=== PATIENT | female | born 1930 | race Caucasian/White ===

== ENCOUNTER 2020-09-26 19:26 | Inpatient (IN) | payer OTHER, MEDICARE ==
[2020-09-26 20:12] LABS: Bacteria/HPF None Seen HPF (None Seen); Bilirubin Negative (Negative); Blood, Urine Negative (Negative); Clarity Clear (Clear); Glucose, Urine (Dipstick) Normal (Negative); Ketone, Urine Negative (Negative); Leukocyte Negative Leu/uL (Negative); Nitrite Negative (Negative); Protein, Urine (Dipstick) 30 mg/dL (Neg-Trace); RBC/HPF 0-3 HPF (0-3); Squamous Epithelial 0-3 HPF (0-3); Urobilinogen Normal mg/dL (Less than 2); WBC/HPF 0-3 HPF (0-3)
[2020-09-26 20:19] LABS: Specific Gravity, Urine Greater than 1.060 (1.002-1.036)
[2020-09-26 20:21] LABS: #Eosinphils 0.2 thou/uL (0.0-0.7); #Lymphocytes 1.4 thou/uL (1.20-3.40); #Monocytes 1.6 thou/uL (0.11-0.59); #Neutrophils 16.3 thou/uL (1.40-6.50); %Basophils 0.1 % (0.0-1.0); %Eosinophils 1.1 % (0.0-10.0); %Lymphocytes 6.9 % (21.0-51.0); %Monocytes 8.4 % (0.0-10.0); %Neutrophils 83.5 % (42.0-75.0); Hemoglobin 11.9 g/dL (12.0-16.0); Mean Corpuscular HGB CONC 34.1 g/dL (32.0-36.0); Mean Corpuscular Hemoglobin 31.6 pg (27.0-31.0); Mean Corpuscular Volume 92.6 fL (78.0-98.0); Mean Platelet Volume 7.1 fL (7.4-10.4); Platelet Count 295 thou/uL (130-400); RBC Distribution Width 12.2 % (11.5-14.5); Red Blood Cell (RBC) Count 3.79 mill/uL (4.20-5.40); White Blood Cell (WBC) Count 19.5 thou/uL (4.8-10.8)
[2020-09-26] MEDS ORDERED: Ondansetron PF 4 MG/2 ML Vial IVP PRN (20:39)
[2020-09-26] MEDS ORDERED: Dextrose 50% Abboject 50 ML SYRINGE SLOW IVP PRN (20:39)
[2020-09-26] MEDS ORDERED: HumaLOG 300 UNITS/3 ML VIAL SC PRN (20:39)
[2020-09-26] MEDS ORDERED: Dextrose 5% in Water 1,000 ML IV PRN (20:39)
[2020-09-26 20:41] LABS: ALT (SGPT) 8 U/L (8-55); AST (SGOT) 10 U/L (5-34); Albumin 3.2 g/dL (3.4-4.8); Alkaline Phosphatase 61 U/L (40-110); Anion Gap 13 mmol/L (10-20); BUN (Urea Nitrogen) 23 mg/dL (9.8-20.1); Bilirubin, Total 0.4 mg/dL (0.2-1.2); Calc. Creatinine Clearance 0 mL/min (70-130); Calcium 8.3 mg/dL (7.8-10.44); Carbon Dioxide 23 mmol/L (23-31); Chloride 108 mmol/L (98-107); Globulin 2.1 g/dL (2.4-3.5); Glucose 169 mg/dL (83-110); Potassium 4.2 mmol/L (3.5-5.1); Protein, Total 5.3 g/dL (5.8-8.1); Sodium 140 mmol/L (136-145)
[2020-09-26] MEDS ORDERED: Gabapentin 100 MG CAP PO SCH (22:30)
[2020-09-26 23:06] LABS: #Basophils 0.1 thou/uL (0.0-0.2); #Eosinphils 0.1 thou/uL (0.0-0.7); #Monocytes 1.6 thou/uL (0.11-0.59); %Basophils 0.4 % (0.0-1.0); %Eosinophils 0.8 % (0.0-10.0); %Lymphocytes 12.8 % (21.0-51.0); %Monocytes 9.9 % (0.0-10.0); %Neutrophils 76.2 % (42.0-75.0); Mean Corpuscular HGB CONC 34.7 g/dL (32.0-36.0); Mean Corpuscular Hemoglobin 32.4 pg (27.0-31.0); Mean Corpuscular Volume 93.3 fL (78.0-98.0); Mean Platelet Volume 7.3 fL (7.4-10.4); Platelet Count 275 thou/uL (130-400); RBC Distribution Width 12.3 % (11.5-14.5); Red Blood Cell (RBC) Count 3.41 mill/uL (4.20-5.40); White Blood Cell (WBC) Count 15.8 thou/uL (4.8-10.8)
[2020-09-26] MEDS: traMADol HCl 50 MG TAB PO SCH (23:25)
[2020-09-26] MEDS: Acetaminophen 325 MG TAB PO SCH (23:26)
[2020-09-26] MEDS: Ibuprofen 200 MG TAB PO SCH (23:27)
[2020-09-26 23:30] LABS: Troponin I 0.032 ng/mL (< 0.028)
[2020-09-26 23:45] LABS: INR-International Normal Ratio 1.2; PTT 28.6 sec (22.9-36.1); Prothrombin Time 15.3 sec (12.0-14.7)
[2020-09-26] MEDS ORDERED: Hydrocortisone Sod Succ/PF 100 mg/2 ml Vial IVP SCH (23:45)
[2020-09-27 02:18] LABS: #Eosinphils 0.1 thou/uL (0.0-0.7); #Lymphocytes 1.3 thou/uL (1.20-3.40); #Monocytes 1.1 thou/uL (0.11-0.59); #Neutrophils 9.8 thou/uL (1.40-6.50); %Basophils 0.2 % (0.0-1.0); %Eosinophils 0.6 % (0.0-10.0); %Lymphocytes 10.2 % (21.0-51.0); %Monocytes 9.1 % (0.0-10.0); Hemoglobin 10.7 g/dL (12.0-16.0); Mean Corpuscular HGB CONC 34.6 g/dL (32.0-36.0); Mean Corpuscular Hemoglobin 32.4 pg (27.0-31.0); Mean Corpuscular Volume 93.6 fL (78.0-98.0); Mean Platelet Volume 7.1 fL (7.4-10.4); Platelet Count 262 thou/uL (130-400); RBC Distribution Width 12.4 % (11.5-14.5); Red Blood Cell (RBC) Count 3.31 mill/uL (4.20-5.40); White Blood Cell (WBC) Count 12.3 thou/uL (4.8-10.8)
[2020-09-27 02:31] LABS: INR-International Normal Ratio 1.2; PTT 28.9 sec (22.9-36.1); Prothrombin Time 15.1 sec (12.0-14.7)
[2020-09-27 02:32] VITALS: BMI 29.0
[2020-09-27 02:38] LABS: Troponin I 0.053 ng/mL (< 0.028)
[2020-09-27 02:58] LABS: BUN (Urea Nitrogen) 25 mg/dL (9.8-20.1); Calc. Creatinine Clearance 46 mL/min (70-130); Calcium 8.1 mg/dL (7.8-10.44); Carbon Dioxide 24 mmol/L (23-31); Glucose 156 mg/dL (83-110)
[2020-09-27] MEDS ORDERED: Lactated Ringer's 1,000 ML IV SCH ×2 (03:00)
[2020-09-27 03:32] LABS: Anion Gap 10 mmol/L (10-20); Chloride 108 mmol/L (98-107); Potassium 4.3 mmol/L (3.5-5.1); Sodium 139 mmol/L (136-145)
[2020-09-27] MEDS: Acetaminophen 325 MG TAB PO SCH ×2 (04:57→09:45)
[2020-09-27] MEDS: Ibuprofen 200 MG TAB PO SCH ×4 (04:58→23:07)
[2020-09-27] MEDS: traMADol HCl 50 MG TAB PO SCH ×4 (05:51→23:07)
[2020-09-27] MEDS ORDERED: Hydrocortisone Sod Succ/PF 100 mg/2 ml Vial IVP SCH (06:00)
[2020-09-27 09:02] LABS: Anion Gap 10 mmol/L (10-20); BUN (Urea Nitrogen) 24 mg/dL (9.8-20.1); Calc. Creatinine Clearance 50 mL/min (70-130); Calcium 7.8 mg/dL (7.8-10.44); Carbon Dioxide 24 mmol/L (23-31); Chloride 107 mmol/L (98-107); Glucose 136 mg/dL (83-110); Magnesium 1.7 mg/dL (1.6-2.6); Phosphorus 3.7 mg/dL (2.3-4.7); Potassium 4.2 mmol/L (3.5-5.1); Sodium 137 mmol/L (136-145)
[2020-09-27 09:24] LABS: CKMB 4.2 ng/mL (0-6.6)
[2020-09-27] MEDS: Pantoprazole 40 MG VIAL IVP SCH (09:37)
[2020-09-27] MEDS: Gabapentin 100 MG CAP PO SCH ×3 (09:37→20:01)
[2020-09-27] MEDS: Acetaminophen 500 MG TAB PO SCH ×3 (12:08→23:06)
[2020-09-28] MEDS: Acetaminophen 500 MG TAB PO SCH ×4 (05:04→23:23)
[2020-09-28] MEDS: Ibuprofen 200 MG TAB PO SCH ×4 (05:04→23:23)
[2020-09-28] MEDS: traMADol HCl 50 MG TAB PO SCH ×4 (05:04→23:23)
[2020-09-28] MEDS: Gabapentin 100 MG CAP PO SCH ×3 (09:07→20:07)
[2020-09-28] MEDS: Pantoprazole 40 MG VIAL IVP SCH (09:07)
[2020-09-29] MEDS: Ibuprofen 200 MG TAB PO SCH ×3 (05:11→17:46)
[2020-09-29] MEDS: traMADol HCl 50 MG TAB PO SCH ×3 (05:11→17:47)
[2020-09-29] MEDS: Acetaminophen 500 MG TAB PO SCH ×3 (05:11→17:45)
[2020-09-29] MEDS: Gabapentin 100 MG CAP PO SCH ×3 (08:20→20:33)
[2020-09-29] MEDS: Pantoprazole 40 MG VIAL IVP SCH (08:21)
[2020-09-29] MEDS: Sulfameth/Trimethoprim DS 800-160mg TAB PO SCH (20:34)
[2020-09-30] MEDS: Ibuprofen 200 MG TAB PO SCH ×5 (00:06→23:47)
[2020-09-30] MEDS: Acetaminophen 500 MG TAB PO SCH ×5 (00:07→23:47)
[2020-09-30] MEDS: traMADol HCl 50 MG TAB PO SCH ×5 (00:07→23:48)
[2020-09-30] MEDS: Levothyroxine Sodium 75 MCG TAB PO SCH (05:20)
[2020-09-30] MEDS: Saccharomyces boulardii 250 MG CAP PO SCH (09:51)
[2020-09-30] MEDS: Gabapentin 100 MG CAP PO SCH ×3 (09:51→20:28)
[2020-09-30] MEDS: Sulfameth/Trimethoprim DS 800-160mg TAB PO SCH ×2 (09:51→20:28)
[2020-09-30] MEDS: Enoxaparin Sodium 40 MG/0.4 ML SYRINGE SC SCH (09:53)
[2020-10-01] MEDS: Acetaminophen 500 MG TAB PO SCH ×3 (05:42→17:59)
[2020-10-01] MEDS: Ibuprofen 200 MG TAB PO SCH ×3 (05:43→17:57)
[2020-10-01] MEDS: traMADol HCl 50 MG TAB PO SCH ×3 (05:44→18:00)
[2020-10-01] MEDS: Levothyroxine Sodium 75 MCG TAB PO SCH (05:44)
[2020-10-01] MEDS: Enoxaparin Sodium 40 MG/0.4 ML SYRINGE SC SCH (08:35)
[2020-10-01] MEDS: Gabapentin 100 MG CAP PO SCH ×3 (08:36→20:33)
[2020-10-01] MEDS: Saccharomyces boulardii 250 MG CAP PO SCH (08:36)
[2020-10-01] MEDS: Sulfameth/Trimethoprim DS 800-160mg TAB PO SCH ×2 (08:36→20:28)
[2020-10-02] MEDS: traMADol HCl 50 MG TAB PO SCH ×4 (00:22→17:18)
[2020-10-02] MEDS: Acetaminophen 500 MG TAB PO SCH ×4 (00:22→17:18)
[2020-10-02] MEDS: Ibuprofen 200 MG TAB PO SCH ×4 (00:22→17:17)
[2020-10-02] MEDS: traMADol HCl 50 MG TAB PO PRN ×2 (02:47→17:19)
[2020-10-02] MEDS: Levothyroxine Sodium 75 MCG TAB PO SCH (05:26)
[2020-10-02] MEDS: Enoxaparin Sodium 40 MG/0.4 ML SYRINGE SC SCH (09:16)
[2020-10-02] MEDS: Gabapentin 100 MG CAP PO SCH ×2 (09:17→14:21)
[2020-10-02] MEDS: Saccharomyces boulardii 250 MG CAP PO SCH (09:17)
[2020-10-02] MEDS: Sulfameth/Trimethoprim DS 800-160mg TAB PO SCH (09:17)
[2020-10-02 16:23] VITALS: BP 143/76; TEMP 97.6
[2020-10-03] MEDS ORDERED: sulfaSALAzine 500 MG TAB PO SCH (09:00)
== END 2020-10-02 18:15 | disposition swing bed (61) | DRG 184 ==
LOC: ERS 19:26 → SURG A 20:39 → OBSVTOIN 20:39 → 2NO 09-27 05:13 → SURG A 09-28 17:34
PROVIDERS: ADMIT Surgery; ATTEND Surgery
DX: S22.43XA Multiple fractures of ribs, bilateral, initial encounter for closed fracture (principal); S22.20XA Unspecified fracture of sternum, initial encounter for closed fracture; K51.90 Ulcerative colitis, unspecified, without complications; S30.1XXA Contusion of abdominal wall, initial encounter; Z23 Encounter for immunization; I10 Essential (primary) hypertension; E11.9 Type 2 diabetes mellitus without complications; E03.9 Hypothyroidism, unspecified; E78.00 Pure hypercholesterolemia, unspecified; H35.30 Unspecified macular degeneration; E78.5 Hyperlipidemia, unspecified; S20.219A Contusion of unspecified front wall of thorax, initial encounter; J32.9 Chronic sinusitis, unspecified; I08.3 Combined rheumatic disorders of mitral, aortic and tricuspid valves; Z90.710 Acquired absence of both cervix and uterus; Z87.891 Personal history of nicotine dependence; V49.9XXA Car occupant (driver) (passenger) injured in unspecified traffic accident, initial encounter; Y92.410 Unspecified street and highway as the place of occurrence of the external cause; Z85.820 Personal history of malignant melanoma of skin; Z79.899 Other long term (current) drug therapy; Z79.82 Long term (current) use of aspirin; Z79.890 Hormone replacement therapy; Z79.84 Long term (current) use of oral hypoglycemic drugs; Z98.890 Other specified postprocedural states
CPT/HCPCS: 36415; 36416; 71045; 80048; 80053; 81003; 81015; 82533; 82553; 83735; 84100; 84146; 84484; 85025; 85610; 85730; 86850; 86900; 86901; 90471; 90732; 93005; 93010; 93306; 96374; 96375; 96376; C9113; G0009; G0378; G0390; J1650; J2405

== ENCOUNTER 2020-10-08 13:22 | Inpatient (IN) | payer OTHER, MEDICARE ==
[~2020-10-08 13:22] MED LIST: Iopamidol-370 76% 500 ML 1 ML ONE
[2020-10-08] MEDS ORDERED: Acetaminophen 325 MG TAB PO PRN (18:09)
[2020-10-08] MEDS ORDERED: Ondansetron PF 4 MG/2 ML Vial IVP PRN (18:09)
[2020-10-08] MEDS ORDERED: Dextrose 5% in Water 1,000 ML IV PRN (18:20)
[2020-10-08] MEDS ORDERED: Dextrose 50% Abboject 50 ML SYRINGE SLOW IVP PRN (18:20)
[2020-10-08] MEDS ORDERED: HumaLOG 300 UNITS/3 ML VIAL SC PRN ×2 (18:20)
[2020-10-08] MEDS ORDERED: Simethicone Chewable 80 MG TAB PO PRN (18:32)
[2020-10-08] MEDS ORDERED: Zolpidem Tartrate 5 MG TAB PO PRN (18:32)
[2020-10-08] MEDS: Sodium Chloride 0.9% 1,000 ML IV SCH (18:46)
[2020-10-08 19:56] LABS: Hemoglobin 6.9 g/dL (12.0-16.0)
[2020-10-08 20:06] LABS: INR-International Normal Ratio 1.3; Prothrombin Time 16.5 sec (12.0-14.7)
[2020-10-08] MEDS: Pantoprazole 40 MG VIAL IVP SCH (22:17)
[2020-10-08] MEDS: Cepastat Lozenges 1 LOZ PO PRN (22:17)
[2020-10-09 00:58] LABS: Hemoglobin 6.3 g/dL (12.0-16.0)
[2020-10-09] MEDS: Levothyroxine Sodium 75 MCG TAB PO SCH (05:13)
[2020-10-09] MEDS: Sodium Chloride 0.9% 1,000 ML IV SCH ×2 (07:18→21:14)
[2020-10-09] MEDS: Pantoprazole 40 MG VIAL IVP SCH ×2 (08:21→21:14)
[2020-10-09] MEDS: Losartan 25 MG TAB PO SCH (08:21)
[2020-10-09] MEDS: sulfaSALAzine 500 MG TAB PO SCH (08:21)
[2020-10-09] MEDS: Sucralfate 1 GM TAB PO SCH ×2 (08:21→16:40)
[2020-10-09] MEDS: Cepastat Lozenges 1 LOZ PO PRN (08:22)
[2020-10-09 10:46] LABS: Anion Gap 11 mmol/L (10-20); BUN (Urea Nitrogen) 38 mg/dL (9.8-20.1); Calc. Creatinine Clearance 56 mL/min (70-130); Calcium 7.8 mg/dL (7.8-10.44); Carbon Dioxide 20 mmol/L (23-31); Chloride 111 mmol/L (98-107); Glucose 126 mg/dL (83-110); Phosphorus 2.6 mg/dL (2.3-4.7); Potassium 4.4 mmol/L (3.5-5.1); Sodium 138 mmol/L (136-145)
[2020-10-09 11:32] LABS: Band 16 % (5-11); Eosinophils 2 % (0-10); Hemoglobin 7.7 g/dL (12.0-16.0); Lymphocytes 12 % (21-51); MDiff Complete? YES; Mean Corpuscular HGB CONC 34.3 g/dL (32.0-36.0); Mean Corpuscular Hemoglobin 31.9 pg (27.0-31.0); Mean Corpuscular Volume 92.8 fL (78.0-98.0); Mean Platelet Volume 5.9 fL (7.4-10.4); Metamyelocyte 4 % (0-0); Monocytes 9 % (0-10); Myelocyte 1 % (0-0); Neutrophil 55 % (42-75); Platelet Count 415 thou/uL (130-400); Platelet Morphology Comment Appears Increased; Polychromasia SLIGHT = 2-3 cells (100X) (0-2/hpf); RBC Distribution Width 15.3 % (11.5-14.5); Red Blood Cell (RBC) Count 2.41 mill/uL (4.20-5.40)
[2020-10-09 12:07] LABS: Hemoglobin 7.8 g/dL (12.0-16.0)
[2020-10-09 12:23] LABS: Glucose 118 mg/dL (83-110)
[2020-10-09] MEDS: Nystatin 500,000 UNITS/5 ML UDCUP SSW SCH ×2 (16:40→21:14)
[2020-10-09] MEDS: traMADol HCl 50 MG TAB PO PRN ×2 (16:44→21:24)
[2020-10-09 18:34] LABS: Hemoglobin 7.7 g/dL (12.0-16.0)
[2020-10-09 18:56] LABS: Glucose 117 mg/dL (83-110)
[2020-10-09] MEDS ORDERED: GoLYTELY 4,000 ml Bottle PO SCH (20:15)
[2020-10-10 00:11] LABS: Glucose 97 mg/dL (83-110)
[2020-10-10 01:30] LABS: Hemoglobin 7.2 g/dL (12.0-16.0)
[2020-10-10 05:17] LABS: Glucose 86 mg/dL (83-110)
[2020-10-10] MEDS: Levothyroxine Sodium 75 MCG TAB PO SCH (06:15)
[2020-10-10] MEDS: traMADol HCl 50 MG TAB PO PRN ×2 (06:15→21:27)
[2020-10-10 07:12] LABS: SARS-CoV-2 NAA Rapid Test Not Detected (NotDetected)
[2020-10-10] MEDS: Losartan 25 MG TAB PO SCH (08:51)
[2020-10-10] MEDS: Pantoprazole 40 MG VIAL IVP SCH (08:51)
[2020-10-10] MEDS: Sodium Chloride 0.9% 1,000 ML IV SCH (08:51)
[2020-10-10] MEDS: Nystatin 500,000 UNITS/5 ML UDCUP SSW SCH ×4 (08:55→21:27)
[2020-10-10] MEDS ORDERED: PROPOFOL 200 MG/20 ML VIAL ONE (12:24)
[2020-10-10] MEDS ORDERED: Ketamine 50 MG/ML (10ML VIAL) ONE (12:31)
[2020-10-10] MEDS ORDERED: PACU-Morphine 4MG/ML VIAL SLOW IVP PRN (13:16)
[2020-10-10] MEDS ORDERED: Promethazine HCl 25 MG/ML VIAL SLOW IVP PRN (13:16)
[2020-10-10] MEDS ORDERED: Promethazine HCl 25 MG/ML VIAL IM PRN (13:16)
[2020-10-10] MEDS ORDERED: Ondansetron HCl/PF 4 MG/2 ML Vial IVP PRN (13:16)
[2020-10-10] MEDS: sulfaSALAzine 500 MG TAB PO SCH (14:47)
[2020-10-10] MEDS: Mesalamine DR 400 mg Capsule PO SCH ×2 (15:57→21:26)
[2020-10-10] MEDS ORDERED: hydrALAZINE 20 MG/ML VIAL SLOW IVP PRN (18:20)
[2020-10-10] MEDS ORDERED: NIFEdipine XL 30 MG TAB PO SCH (19:00)
[2020-10-10] MEDS: Lorazepam 2 MG/ML VIAL SLOW IVP PRN (21:25)
[2020-10-10] MEDS: Mesalamine 1000 MG Suppository PR SCH (21:27)
[2020-10-11] MEDS: Acetaminophen 500 MG TAB PO SCH ×4 (00:24→19:45)
[2020-10-11] MEDS: Sodium Chloride 0.9% 1,000 ML IV SCH (00:51)
[2020-10-11] MEDS: Levothyroxine Sodium 75 MCG TAB PO SCH ×2 (04:50→04:51)
[2020-10-11] MEDS: traMADol HCl 50 MG TAB PO PRN (04:52)
[2020-10-11 06:23] LABS: Hemoglobin 7.5 g/dL (12.0-16.0); Mean Corpuscular HGB CONC 32.6 g/dL (32.0-36.0); Mean Corpuscular Hemoglobin 30.2 pg (27.0-31.0); Mean Corpuscular Volume 92.8 fL (78.0-98.0); Mean Platelet Volume 5.8 fL (7.4-10.4); Platelet Count 362 thou/uL (130-400); RBC Distribution Width 16.4 % (11.5-14.5); Red Blood Cell (RBC) Count 2.49 mill/uL (4.20-5.40); White Blood Cell (WBC) Count 9.6 thou/uL (4.8-10.8)
[2020-10-11 06:32] LABS: Anion Gap 12 mmol/L (10-20); BUN (Urea Nitrogen) 11 mg/dL (9.8-20.1); Calc. Creatinine Clearance 75 mL/min (70-130); Calcium 7.8 mg/dL (7.8-10.44); Carbon Dioxide 20 mmol/L (23-31); Chloride 112 mmol/L (98-107); Glucose 109 mg/dL (83-110); Magnesium 1.6 mg/dL (1.6-2.6); Potassium 3.7 mmol/L (3.5-5.1); Sodium 140 mmol/L (136-145)
[2020-10-11 06:39] LABS: #Eosinphils 0.3 thou/uL (0.0-0.7); #Lymphocytes 1.2 thou/uL (1.20-3.40); #Monocytes 1.1 thou/uL (0.11-0.59); %Basophils 0.1 % (0.0-1.0); %Eosinophils 2.8 % (0.0-10.0); %Lymphocytes 12.9 % (21.0-51.0); %Neutrophils 73.2 % (42.0-75.0); Anisocytosis SLIGHT = 6-15 cells (100X) (0-5/hpf); MDiff Complete? YES; Polychromasia SLIGHT = 2-3 cells (100X) (0-2/hpf)
[2020-10-11] MEDS: Nystatin 500,000 UNITS/5 ML UDCUP SSW SCH ×4 (08:54→20:32)
[2020-10-11] MEDS: Gabapentin 100 MG CAP PO SCH (08:54)
[2020-10-11] MEDS: Losartan 25 MG TAB PO SCH (08:55)
[2020-10-11] MEDS: NIFEdipine XL 60 MG TAB PO SCH (08:55)
[2020-10-11] MEDS: Cholecalciferol 1,000 UNITS (25 MCG) TAB PO SCH (08:55)
[2020-10-11] MEDS: Saccharomyces boulardii 250 MG CAP PO SCH (08:55)
[2020-10-11] MEDS: Mesalamine 1000 MG Suppository PR SCH ×2 (08:56→20:31)
[2020-10-11] MEDS: Mesalamine DR 400 mg Capsule PO SCH ×3 (08:59→20:31)
[2020-10-11] MEDS ORDERED: Pantoprazole 40 MG VIAL IVP SCH (09:00)
[2020-10-11] MEDS ORDERED: NIFEdipine XL 30 MG TAB PO SCH (09:00)
[2020-10-11] MEDS ORDERED: Metoprolol Tartrate 5 MG/5 ML VIAL IVP PRN (10:43)
[2020-10-11] MEDS: Amiodarone 200 MG TAB PO SCH ×2 (16:19→20:32)
[2020-10-11 17:19] LABS: Free T4 (Free Thyroxine) 0.95 ng/dL (0.70-1.48)
[2020-10-11] MEDS ORDERED: Iron, Sodium Ferric Gluconate 250 MG in Sodium Chloride 0.9% 250 ML 250 ML IVPB SCH (17:45)
[2020-10-11] MEDS: Pantoprazole 40 MG VIAL IVP SCH (20:33)
[2020-10-12] MEDS: Acetaminophen 500 MG TAB PO SCH ×4 (00:55→16:09)
[2020-10-12] MEDS: traMADol HCl 50 MG TAB PO PRN (02:05)
[2020-10-12 04:47] LABS: Hemoglobin 8.1 g/dL (12.0-16.0)
[2020-10-12] MEDS: Levothyroxine Sodium 75 MCG TAB PO SCH (05:56)
[2020-10-12] MEDS: Cholecalciferol 1,000 UNITS (25 MCG) TAB PO SCH (08:12)
[2020-10-12] MEDS: NIFEdipine XL 60 MG TAB PO SCH (08:12)
[2020-10-12] MEDS: Amiodarone 200 MG TAB PO SCH ×3 (08:12→21:37)
[2020-10-12] MEDS: Losartan 25 MG TAB PO SCH (08:13)
[2020-10-12] MEDS: Nystatin 500,000 UNITS/5 ML UDCUP SSW SCH ×4 (08:13→21:37)
[2020-10-12] MEDS: Gabapentin 100 MG CAP PO SCH (08:13)
[2020-10-12] MEDS: Saccharomyces boulardii 250 MG CAP PO SCH (08:13)
[2020-10-12] MEDS: Mesalamine DR 400 mg Capsule PO SCH ×3 (08:14→21:37)
[2020-10-12] MEDS: Mesalamine 1000 MG Suppository PR SCH ×2 (08:14→21:37)
[2020-10-12] MEDS: Pantoprazole 40 MG VIAL IVP SCH ×2 (08:24→21:38)
[2020-10-12] MEDS ORDERED: Magnesium 2 GM/50 ML 2 GM in Premix Bag 1 BAG IVPB SCH (09:00)
[2020-10-12] MEDS ORDERED: NIFEdipine XL 30 MG TAB PO SCH (12:00)
[2020-10-12] MEDS: Lidocaine 5% Patch TD SCH (12:27)
[2020-10-12 12:41] LABS: Iron 63 ug/dL (50-170); Iron Binding Capacity, Total 215 mcg/dL (265-497)
[2020-10-12 13:09] LABS: Ferritin 302.46 ng/mL (10-291)
[2020-10-12] MEDS: Melatonin 3 MG TAB PO PRN (21:37)
[2020-10-12] MEDS: Lorazepam 2 MG/ML VIAL SLOW IVP PRN (21:38)
[2020-10-13] MEDS: Acetaminophen 500 MG TAB PO SCH ×5 (00:46→23:52)
[2020-10-13 05:05] LABS: #Eosinphils 0.3 thou/uL (0.0-0.7); #Lymphocytes 1.3 thou/uL (1.20-3.40); #Neutrophils 8.2 thou/uL (1.40-6.50); %Eosinophils 2.8 % (0.0-10.0); %Lymphocytes 11.8 % (21.0-51.0); %Monocytes 9.3 % (0.0-10.0); Mean Corpuscular HGB CONC 33.6 g/dL (32.0-36.0); Mean Corpuscular Hemoglobin 31.7 pg (27.0-31.0); Mean Corpuscular Volume 94.2 fL (78.0-98.0); Mean Platelet Volume 6.2 fL (7.4-10.4); Platelet Count 383 thou/uL (130-400); RBC Distribution Width 17.2 % (11.5-14.5); Red Blood Cell (RBC) Count 2.54 mill/uL (4.20-5.40); White Blood Cell (WBC) Count 10.8 thou/uL (4.8-10.8)
[2020-10-13] MEDS: Levothyroxine Sodium 75 MCG TAB PO SCH (05:24)
[2020-10-13 06:00] LABS: Ferritin 336.07 ng/mL (10-291); Thyroid Stimulating Hormone 12.7724 uIU/mL (0.35-4.94)
[2020-10-13] MEDS ORDERED: Lidocaine 1% (PF) 30 ML VIAL ONE (07:52)
[2020-10-13] MEDS ORDERED: NIFEdipine XL 90 MG TAB PO SCH (09:00)
[2020-10-13] MEDS ORDERED: Iopamidol 370 76% 50 ML VIAL FS ONE (09:06)
[2020-10-13] MEDS: Saccharomyces boulardii 250 MG CAP PO SCH (10:24)
[2020-10-13] MEDS: Amiodarone 200 MG TAB PO SCH ×3 (10:24→21:38)
[2020-10-13] MEDS: Nystatin 500,000 UNITS/5 ML UDCUP SSW SCH ×4 (10:24→21:01)
[2020-10-13] MEDS: Losartan 25 MG TAB PO SCH (10:25)
[2020-10-13] MEDS: Gabapentin 100 MG CAP PO SCH (10:25)
[2020-10-13] MEDS: Pantoprazole 40 MG VIAL IVP SCH ×2 (10:26→21:01)
[2020-10-13] MEDS: Cholecalciferol 1,000 UNITS (25 MCG) TAB PO SCH (10:26)
[2020-10-13] MEDS: Mesalamine DR 400 mg Capsule PO SCH ×3 (10:27→21:01)
[2020-10-13] MEDS: Lidocaine 5% Patch TD SCH (10:27)
[2020-10-13] MEDS: Mesalamine 1000 MG Suppository PR SCH ×2 (10:27→21:01)
[2020-10-13] MEDS: Transdermal Patch Removal TOP SCH ×2 (21:01)
[2020-10-13] MEDS: Melatonin 3 MG TAB PO PRN (21:11)
[2020-10-13 21:25] LABS: Hemoglobin 8.3 g/dL (12.0-16.0)
[2020-10-14] MEDS: Levothyroxine Sodium 75 MCG TAB PO SCH (06:04)
[2020-10-14] MEDS: Acetaminophen 500 MG TAB PO SCH ×3 (06:04→17:31)
[2020-10-14] MEDS: Lidocaine 5% Patch TD SCH (09:02)
[2020-10-14] MEDS: Pantoprazole 40 MG VIAL IVP SCH (09:03)
[2020-10-14] MEDS: Mesalamine DR 400 mg Capsule PO SCH ×3 (09:03→21:48)
[2020-10-14] MEDS: Losartan 25 MG TAB PO SCH (09:03)
[2020-10-14] MEDS: Amiodarone 200 MG TAB PO SCH ×3 (09:04→20:52)
[2020-10-14] MEDS: Saccharomyces boulardii 250 MG CAP PO SCH (09:04)
[2020-10-14] MEDS: Cholecalciferol 1,000 UNITS (25 MCG) TAB PO SCH (09:04)
[2020-10-14] MEDS: Amlodipine 5 MG TAB PO SCH (09:04)
[2020-10-14] MEDS: Nystatin 500,000 UNITS/5 ML UDCUP SSW SCH ×4 (09:05→20:51)
[2020-10-14] MEDS: Gabapentin 100 MG CAP PO SCH (09:05)
[2020-10-14] MEDS: Mesalamine 1000 MG Suppository PR SCH ×2 (09:06→21:05)
[2020-10-14] MEDS: Aspirin 81 mg Enteric Coated Tablet PO SCH (09:11)
[2020-10-14 10:10] LABS: Hemoglobin 9.1 g/dL (12.0-16.0)
[2020-10-14 12:16] VITALS: BMI 27.1
[2020-10-14] MEDS ORDERED: Levothyroxine Sodium 25 MCG TAB PO SCH (19:00)
[2020-10-14] MEDS: Lorazepam 2 MG/ML VIAL SLOW IVP PRN (21:06)
[2020-10-14] MEDS: Transdermal Patch Removal TOP SCH ×2 (21:48)
[2020-10-15] MEDS: Acetaminophen 500 MG TAB PO SCH ×5 (00:37→23:24)
[2020-10-15 04:44] LABS: Hemoglobin 8.4 g/dL (12.0-16.0); Mean Corpuscular HGB CONC 33.3 g/dL (32.0-36.0); Mean Corpuscular Hemoglobin 31.6 pg (27.0-31.0); Mean Corpuscular Volume 95.1 fL (78.0-98.0); Mean Platelet Volume 5.9 fL (7.4-10.4); Platelet Count 426 thou/uL (130-400); RBC Distribution Width 16.8 % (11.5-14.5); Red Blood Cell (RBC) Count 2.65 mill/uL (4.20-5.40); White Blood Cell (WBC) Count 8.7 thou/uL (4.8-10.8)
[2020-10-15 05:09] LABS: Anion Gap 11 mmol/L (10-20); BUN (Urea Nitrogen) 13 mg/dL (9.8-20.1); Calc. Creatinine Clearance 67 mL/min (70-130); Calcium 7.8 mg/dL (7.8-10.44); Carbon Dioxide 24 mmol/L (23-31); Chloride 109 mmol/L (98-107); Glucose 96 mg/dL (83-110); Potassium 3.3 mmol/L (3.5-5.1); Sodium 141 mmol/L (136-145)
[2020-10-15] MEDS: Levothyroxine Sodium 100 MCG TAB PO SCH (06:09)
[2020-10-15] MEDS: Nystatin 500,000 UNITS/5 ML UDCUP SSW SCH ×4 (08:55→21:00)
[2020-10-15] MEDS: Saccharomyces boulardii 250 MG CAP PO SCH (08:56)
[2020-10-15] MEDS: Amlodipine 5 MG TAB PO SCH (08:56)
[2020-10-15] MEDS: Mesalamine DR 400 mg Capsule PO SCH ×3 (08:56→20:59)
[2020-10-15] MEDS: Aspirin 81 mg Enteric Coated Tablet PO SCH (08:56)
[2020-10-15] MEDS: Gabapentin 100 MG CAP PO SCH (08:57)
[2020-10-15] MEDS: Amiodarone 200 MG TAB PO SCH ×2 (08:57→20:58)
[2020-10-15] MEDS: Mesalamine 1000 MG Suppository PR SCH ×2 (08:58→21:00)
[2020-10-15] MEDS: Lidocaine 5% Patch TD SCH (08:58)
[2020-10-15] MEDS: Cholecalciferol 1,000 UNITS (25 MCG) TAB PO SCH (08:58)
[2020-10-15] MEDS ORDERED: Potassium Chloride 20 MEQ TAB PO SCH (09:00)
[2020-10-15] MEDS: Losartan 25 MG TAB PO SCH (09:02)
[2020-10-15] MEDS ORDERED: Potassium Bicarbonate/Cit Ac 20 MEQ TAB PO SCH (10:15)
[2020-10-15] MEDS ORDERED: Amlodipine 5 MG TAB PO SCH (11:00)
[2020-10-15] MEDS: Transdermal Patch Removal TOP SCH (21:03)
[2020-10-15] MEDS: Melatonin 3 MG TAB PO PRN (23:24)
[2020-10-16] MEDS: Levothyroxine Sodium 100 MCG TAB PO SCH (05:43)
[2020-10-16] MEDS: Acetaminophen 500 MG TAB PO SCH ×2 (05:43→12:55)
[2020-10-16] MEDS: Saccharomyces boulardii 250 MG CAP PO SCH (08:51)
[2020-10-16] MEDS: Mesalamine 1000 MG Suppository PR SCH (08:51)
[2020-10-16] MEDS: Mesalamine DR 400 mg Capsule PO SCH ×2 (08:51→15:49)
[2020-10-16] MEDS: Aspirin 81 mg Enteric Coated Tablet PO SCH (08:52)
[2020-10-16] MEDS: Cholecalciferol 1,000 UNITS (25 MCG) TAB PO SCH (08:52)
[2020-10-16] MEDS: Amlodipine 5 MG TAB PO SCH (08:52)
[2020-10-16] MEDS: Lidocaine 5% Patch TD SCH (08:52)
[2020-10-16] MEDS: Amiodarone 200 MG TAB PO SCH (08:52)
[2020-10-16] MEDS: Nystatin 500,000 UNITS/5 ML UDCUP SSW SCH ×2 (08:53→13:00)
[2020-10-16] MEDS: Losartan 25 MG TAB PO SCH (08:53)
[2020-10-16 17:16] VITALS: BP 148/72; TEMP 98.2
[2020-10-17] MEDS ORDERED: Amlodipine 10 MG TAB PO SCH (09:00)
== END 2020-10-16 17:33 | DRG 386 ==
LOC: 2NO 15:10 → INTOOBSV 15:10 → OBSVTOIN 18:09 → T4-A 10-15 14:09
PROVIDERS: ADMIT Internal Medicine; ATTEND Internal Medicine
PROC: 0DBM8ZX Excision of Descending Colon, Via Natural or Artificial Opening Endoscopic, Diagnostic (ICD-10-PCS; principal; 2020-10-10)
PROC: 0DBN8ZX Excision of Sigmoid Colon, Via Natural or Artificial Opening Endoscopic, Diagnostic (ICD-10-PCS; 2020-10-10)
PROC: 0DBP8ZX Excision of Rectum, Via Natural or Artificial Opening Endoscopic, Diagnostic (ICD-10-PCS; 2020-10-10)
PROC: 0DB38ZX Excision of Lower Esophagus, Via Natural or Artificial Opening Endoscopic, Diagnostic (ICD-10-PCS; 2020-10-10)
PROC: 0DB28ZX Excision of Middle Esophagus, Via Natural or Artificial Opening Endoscopic, Diagnostic (ICD-10-PCS; 2020-10-10)
PROC: 06H03DZ Insertion of Intraluminal Device into Inferior Vena Cava, Percutaneous Approach (ICD-10-PCS; 2020-10-13)
PROC: B5091ZZ Plain Radiography of Inferior Vena Cava using Low Osmolar Contrast (ICD-10-PCS; 2020-10-13)
PROC: B549ZZA Ultrasonography of Inferior Vena Cava, Guidance (ICD-10-PCS; 2020-10-13)
DX: K51.90 Ulcerative colitis, unspecified, without complications (principal); D62 Acute posthemorrhagic anemia; B37.0 Candidal stomatitis; I82.411 Acute embolism and thrombosis of right femoral vein; I50.32 Chronic diastolic (congestive) heart failure; K92.2 Gastrointestinal hemorrhage, unspecified; E11.9 Type 2 diabetes mellitus without complications; E03.9 Hypothyroidism, unspecified; K44.9 Diaphragmatic hernia without obstruction or gangrene; K80.20 Calculus of gallbladder without cholecystitis without obstruction; I72.8 Aneurysm of other specified arteries; R06.03 Acute respiratory distress; Z20.822 Contact with and (suspected) exposure to COVID-19; R33.9 Retention of urine, unspecified; I11.0 Hypertensive heart disease with heart failure; K21.00 Gastro-esophageal reflux disease with esophagitis, without bleeding; I48.0 Paroxysmal atrial fibrillation; R53.81 Other malaise; R42 Dizziness and giddiness; S22.20XD Unspecified fracture of sternum, subsequent encounter for fracture with routine healing; S22.39XD Fracture of one rib, unspecified side, subsequent encounter for fracture with routine healing; S30.1XXD Contusion of abdominal wall, subsequent encounter; Z79.899 Other long term (current) drug therapy; Z79.4 Long term (current) use of insulin; Z90.89 Acquired absence of other organs; Z98.890 Other specified postprocedural states; Z87.891 Personal history of nicotine dependence; Z79.82 Long term (current) use of aspirin; V49.50XD Passenger injured in collision with unspecified motor vehicles in traffic accident, subsequent encounter
CPT/HCPCS: 36415; 36416; 36430; 37191; 71045; 74177; 76942; 80048; 82607; 82728; 82746; 82947; 83540; 83550; 83735; 84100; 84132; 84439; 84443; 84481; 85014; 85018; 85025; 85027; 85610; 85652; 86140; 86850; 86900; 86901; 87045; 87046; 87324; 87427; 87449; 88305; 88312; 93005; 93010; 93306; C1880; C9113; J0360; J2001; J2060; J2405; J2704; J2916; J3475; J7050; P9016; Q9967; U0002; U0005

== ENCOUNTER 2020-11-27 16:36 | Inpatient (IN) | payer OTHER, MEDICARE ==
[2020-11-27 19:42] VITALS: BMI 24.1
[2020-11-27] MEDS ORDERED: HYDROcodone/Acetaminophen 5/325 mg Tablet PO PRN (23:58)
[2020-11-27] MEDS ORDERED: Senokot S 8.6-50 MG TAB PO PRN (23:58)
[2020-11-27] MEDS ORDERED: Acetaminophen 325 MG TAB PO PRN (23:58)
[2020-11-27] MEDS ORDERED: Ondansetron PF 4 MG/2 ML Vial IVP PRN (23:58)
[2020-11-28] MEDS ORDERED: Dextrose 5% in Water 1,000 ML IV PRN (04:34)
[2020-11-28] MEDS ORDERED: Dextrose 50% Abboject 50 ML SYRINGE SLOW IVP PRN (04:34)
[2020-11-28] MEDS ORDERED: HumaLOG 300 UNITS/3 ML VIAL SC PRN ×2 (04:34)
[2020-11-28 06:02] LABS: #Basophils 0.1 thou/uL (0.0-0.2); #Eosinphils 0.6 thou/uL (0.0-0.7); #Lymphocytes 1.6 thou/uL (1.20-3.40); #Monocytes 0.8 thou/uL (0.11-0.59); #Neutrophils 5.2 thou/uL (1.40-6.50); %Basophils 0.6 % (0.0-1.0); %Eosinophils 7.6 % (0.0-10.0); %Lymphocytes 19.5 % (21.0-51.0); %Monocytes 9.1 % (0.0-10.0); %Neutrophils 63.2 % (42.0-75.0); Hemoglobin 11.4 g/dL (12.0-16.0); Mean Corpuscular HGB CONC 31.7 g/dL (32.0-36.0); Mean Corpuscular Hemoglobin 29.8 pg (27.0-31.0); Mean Corpuscular Volume 94.1 fL (78.0-98.0); Mean Platelet Volume 5.8 fL (7.4-10.4); Platelet Count 360 thou/uL (130-400); RBC Distribution Width 14.2 % (11.5-14.5); Red Blood Cell (RBC) Count 3.83 mill/uL (4.20-5.40); White Blood Cell (WBC) Count 8.2 thou/uL (4.8-10.8)
[2020-11-28 06:08] LABS: Hemoglobin A1c 4.6 % (4.0-6.0)
[2020-11-28 06:23] LABS: Anion Gap 9 mmol/L (10-20); BUN (Urea Nitrogen) 9 mg/dL (9.8-20.1); Calc. Creatinine Clearance 53 mL/min (70-130); Calcium 8.5 mg/dL (7.8-10.44); Carbon Dioxide 27 mmol/L (23-31); Cardiac Risk 3.5 (Less than 4.5); Chloride 107 mmol/L (98-107); Cholesterol 172 mg/dl (< 200 Desired); Glucose 97 mg/dL (83-110); HDL Cholesterol 49 mg/dL (>60 Neg Risk); LDL Cholesterol, Calculated 101 mg/dL; Potassium 4.2 mmol/L (3.5-5.1); Sodium 139 mmol/L (136-145); Triglycerides 111 mg/dL (Less than 150)
[2020-11-28 08:28] LABS: Prothrombin Time 13.4 sec (12.0-14.7)
[2020-11-28] MEDS ORDERED: Sodium Bicarbonate 2.5 MEQ/5 ML VIAL ONE (09:55)
[2020-11-28] MEDS ORDERED: Lidocaine 1% PF 5 ML VIAL ONE (09:55)
[2020-11-28 15:39] LABS: RBC Count-Automated (BF) 5188 /cu.mm; WBC/Nucleated-Auto (BF) 2867 uL
[2020-11-28] MEDS ORDERED: cefTRIAXone\\ROCEPHIN 1 GM in Sodium Chloride 0.9% 100 ML IVPB SCH (16:00)
[2020-11-28 16:02] VITALS: BP 156/72; TEMP 98.1
[2020-11-28 16:02] LABS: BF Color Yellow; Body Fluid Source Pleural Fluid; Clarity Cloudy/Turbid (Clear); Tube # EDTA
[2020-11-28 16:04] LABS: BF Segmented Neutrophils 11 %; Cell Count Non Hematic 57 %; Eosinophils 1 %; Lymphocytes 29 %
[2020-11-28 16:07] LABS: Pleural Fluid, Protein 3.9 g/dL
== END 2020-11-28 18:05 | disposition home health service (06) | DRG 187 ==
LOC: SURG B 16:36
PROVIDERS: ADMIT Internal Medicine; ATTEND Internal Medicine
PROC: 0W9B3ZZ Drainage of Left Pleural Cavity, Percutaneous Approach (ICD-10-PCS; principal; 2020-11-28)
DX: J90 Pleural effusion, not elsewhere classified (principal); I50.32 Chronic diastolic (congestive) heart failure; N39.0 Urinary tract infection, site not specified; K51.90 Ulcerative colitis, unspecified, without complications; Z66 Do not resuscitate; E11.9 Type 2 diabetes mellitus without complications; E03.9 Hypothyroidism, unspecified; K21.00 Gastro-esophageal reflux disease with esophagitis, without bleeding; E78.5 Hyperlipidemia, unspecified; I11.0 Hypertensive heart disease with heart failure; Z86.718 Personal history of other venous thrombosis and embolism; Z79.82 Long term (current) use of aspirin; Z79.899 Other long term (current) drug therapy; Z90.49 Acquired absence of other specified parts of digestive tract; Z98.890 Other specified postprocedural states; Z87.891 Personal history of nicotine dependence; S22.43XD Multiple fractures of ribs, bilateral, subsequent encounter for fracture with routine healing; S22.20XD Unspecified fracture of sternum, subsequent encounter for fracture with routine healing; V89.2XXD Person injured in unspecified motor-vehicle accident, traffic, subsequent encounter
CPT/HCPCS: 36415; 36416; 80048; 80061; 82150; 82945; 83036; 83615; 84157; 85025; 85060; 85610; 85730; 87070; 87205; 89051; J0696; J3490

== ENCOUNTER 2021-02-12 10:05 | Outpatient (CLI) | payer MEDICARE | END 2021-02-12 10:06 | disposition home or self-care (01) | LOC: BICRAD 10:05 | PROVIDERS: ATTEND Internal Medicine Critical Care Medicine | DX: R06.00 Dyspnea, unspecified (principal) | CPT/HCPCS: 71046 ==